=== PATIENT | female | born 1990 | race American Indian/Alaskan Native ===

== ENCOUNTER 2022-04-11 02:51 | Emergency (ER) | payer MEDICAID ==
[2022-04-11 03:08] VITALS: BP 116/66
[2022-04-11 03:58] LABS: Basophils % (Auto) 0.5 % (0.0-1.8); Eosinophils # (Auto) 0.1 K/mm3 (0.0-0.4); Eosinophils % (Auto) 0.8 % (0.0-4.3); Hematocrit 43.5 % (30.3-42.9); Hemoglobin 14.4 gm/dl (10.1-14.3); Lymphocytes # (Auto) 2.4 K/mm3 (1.2-5.4); Lymphocytes % (Auto) 31.2 % (13.4-35.0); Mean Corpuscular HGB Conc 33 % (30-34); Mean Corpuscular Volume 95 fl (79-97); Monocytes # (Auto) 0.8 K/mm3 (0.0-0.8); Monocytes % (Auto) 9.8 % (0.0-7.3); Platelet Count 190 K/mm3 (140-440); Red Blood Count 4.55 M/mm3 (3.65-5.03); Red Cell Distribution Width 13.1 % (13.2-15.2)
[2022-04-11 04:06] LABS: INR 0.84 (0.87-1.13); Partial Thromboplastin Time 27.5 Sec. (24.2-36.6)
[2022-04-11 04:22] LABS: Alanine Aminotransferase 17 units/L (7-56); Albumin 4.4 g/dL (3.9-5); Blood Urea Nitrogen 14 mg/dL (7-17); Calcium 9.1 mg/dL (8.4-10.2); Hemolysis Index 3
[2022-04-11 04:28] LABS: BUN/Creatinine Ratio 20
--- NOTE | 2022-04-11 09:35 | Electrocardiograph Report ---
[facility] Test Date: 2022-04-11 Test Time: 03:04:21 Pat Name: WILFREDO VILLAFANA Department: Room: Gender: F [employer] Maintenance: TUTU : 1990 Requested By: KALIN JAMIL Order Number: [id number] Reading MD: Aramis Lira Measurements Intervals [place] Rate: 65 P: 43 FL: 162 QRS: 83 QRSD: 88 T: 54 QT: 400 QTc: 417 Interpretive Statements Sinus rhythm No previous ECG available for comparison Electronically Signed On 04-11-2022 9:34:52 EDT by Aramis Lira
== END 2022-04-11 03:40 | disposition left against medical advice (07) ==
LOC: ED 02:51
DX: R07.89 Other chest pain (principal); Z53.21 Procedure and treatment not carried out due to patient leaving prior to being seen by health care provider
CPT/HCPCS: 36415; 80053; 84484; 84703; 85025; 85610; 85730; 93005